=== PATIENT | male | born 2000 | race Caucasian/White ===

== ENCOUNTER 2018-01-23 10:30 | Inpatient (IN) | payer BC, OTHER ==
[2018-01-23 10:48] LABS: #Basophils 0.1 thou/uL (0.0-0.2); #Eosinphils 0.3 thou/uL (0.0-0.7); #Lymphocytes 2.1 thou/uL (1.20-3.40); #Monocytes 0.6 thou/uL (0.11-0.59); #Neutrophils 2.6 thou/uL (1.40-6.50); %Basophils 1.8 % (0.0-1.0); %Eosinophils 5.1 % (0.0-10.0); %Lymphocytes 36.9 % (28.0-48.0); %Monocytes 9.7 % (0.0-4.0); %Neutrophils 46.5 % (31.0-61.0); Hemoglobin 15.4 g/dL (14.0-18.0); Mean Corpuscular HGB CONC 31.9 g/dL (32.0-36.0); Mean Corpuscular Hemoglobin 29.5 pg (25.0-35.0); Mean Corpuscular Volume 92.3 fL (78.0-98.0); Mean Platelet Volume 7.4 fL (7.4-10.4); Platelet Count 213 thou/uL (130-400); RBC Distribution Width 11.6 % (11.5-14.5); Red Blood Cell (RBC) Count 5.23 mill/uL (4.00-5.20); White Blood Cell (WBC) Count 5.7 thou/uL (4.8-10.8)
[2018-01-23] MEDS ORDERED: Fentanyl 100 MCG/2 ML VIAL ONE (11:01)
--- NOTE | 2018-01-23 11:06 | RAD ---
THREE VIEWS RIGHT WRIST: Indication: Right wrist pain. Comparison: None. FINDINGS: There is an instrumented healed scaphoid fracture. There is ossific density seen just posterior to th e triquetrum, suspicious for a dorsal triquetral fracture. No additional acute osseous abnormality is evident. IMPRESSION: 1. Findings suspicious for a minimally displaced dorsal triquetral fracture. 2. Healed instrumented scaphoid fracture. POS: [facility]
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
[2018-01-23 11:17] LABS: ALT (SGPT) 13 U/L (8-55); AST (SGOT) 23 U/L (10-45); Albumin 4.6 g/dL (3.5-5.0); Alkaline Phosphatase 125 U/L (Less than 750); Anion Gap 12 mmol/L (10-20); BUN (Urea Nitrogen) 16 mg/dL (8.4-21.0); Bilirubin, Total 1.9 mg/dL (0.2-1.2); Calc. Creatinine Clearance 0 mL/min (70-130); Calcium 9.5 mg/dL (7.8-10.44); Carbon Dioxide 25 mmol/L (22-29); Chloride 104 mmol/L (98-107); Estimated GFR-MDRD 83; Globulin 2.8 g/dL (2.4-3.5); Glucose 109 mg/dL (70-105); Potassium 3.5 mmol/L (3.5-5.1); Protein, Total 7.4 g/dL (6.0-8.3); Sodium 137 mmol/L (136-145)
[2018-01-23] MEDS ORDERED: Adacel (T-DAP) 0.5 ML VIAL ONE (11:27)
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
[2018-01-23] MEDS ORDERED: Acetaminophen 500 MG TAB PO PRN (12:17)
[2018-01-23] MEDS ORDERED: Ketorolac Tromethamine 30 MG/ML VIAL IVP PRN (12:17)
[2018-01-23] MEDS ORDERED: traMADol HCl 50 MG TAB PO PRN (12:18)
[2018-01-23] MEDS ORDERED: ISOVUE-370 76%-LOCM 1 ML ONE (12:22)
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
[2018-01-23 15:00] VITALS: BMI 21.8
[2018-01-24 05:36] LABS: #Basophils 0.1 thou/uL (0.0-0.2); #Eosinphils 0.2 thou/uL (0.0-0.7); #Lymphocytes 1.7 thou/uL (1.20-3.40); #Monocytes 1.3 thou/uL (0.11-0.59); #Neutrophils 5.4 thou/uL (1.40-6.50); %Basophils 0.6 % (0.0-1.0); %Eosinophils 2.3 % (0.0-10.0); %Lymphocytes 19.5 % (28.0-48.0); %Monocytes 14.7 % (0.0-4.0); %Neutrophils 62.8 % (31.0-61.0); Mean Corpuscular HGB CONC 32.1 g/dL (32.0-36.0); Mean Corpuscular Volume 93.5 fL (78.0-98.0); Mean Platelet Volume 7.9 fL (7.4-10.4); Platelet Count 159 thou/uL (130-400); RBC Distribution Width 11.5 % (11.5-14.5); Red Blood Cell (RBC) Count 4.67 mill/uL (4.00-5.20); White Blood Cell (WBC) Count 8.6 thou/uL (4.8-10.8)
[2018-01-24] MEDS ORDERED: Ibuprofen 600 MG TAB PO SCH (08:00)
[2018-01-24] MEDS ORDERED: Acetaminophen 500 MG TAB PO SCH (08:00)
[2018-01-24 08:17] VITALS: BP 102/61; TEMP 98.8
--- NOTE | 2018-01-24 09:14 | RAD ---
PA AND LATERAL CHEST: History: Follow up of pneumothorax. FINDINGS: Heart size is within normal limits. A small left apical pneumothorax is present. The right lung is cl ear. Minimal blunting to the left costophrenic angle is present. IMPRESSION: Small apical pneumothorax. POS: [facility]
--- NOTE | 2018-01-24 11:56 | PRG ---
DATE OF SERVICE: 01/24/2018 SUBJECTIVE: Mr. Lopez is complaining of some back pain. He has dyspnea only when he walks. PHYSICAL EXAMINATION: VITAL SIGNS: Blood pressure is 102/61, pulse 75, respirations 16. He is afebrile. Multiple voids. CHEST: Clear. HEART: Regular rate and rhythm. ABDOMEN: Soft and nontender. ASSESSMENT: 1. Left apical pneumothorax, stable on followup film. Encouraged incentive spirometer and he will d o that when he goes home as well. He will get follow up chest x-ray when he [facility] next week. 2. Left abdominal and right knee abrasions. I recommended antibiotic ointment after discharge. 3. Questionable splenic laceration, although hemoglobin and hematocrit is stable and this did not lo ok like a significant injury on CT. No further workup, although we will check his hemoglobin when he comes back to the [facility]. 4. Transverse process fractures. Pain control. Recommended ibuprofen after discharge. We will al so get Ultram. DISPOSITION: Discharged home today. Patient to follow up in the [facility]uma Clinic next week.
--- NOTE | 2018-01-24 12:12 | DIS ---
DATE OF ADMISSION: 01/23/2018 DATE OF DISCHARGE: 01/24/2018 ADMIT DIAGNOSES: Small apical pneumothorax T7-T9 transverse process fractures, skin abrasions, quest ionable splenic laceration versus congenital abnormality. DISCHARGE DIAGNOSES: Small apical pneumothorax T7-T9 transverse process fractures, skin abrasions, q uestionable splenic laceration versus congenital abnormality. PROCEDURES: None. CONDITION AT DISCHARGE: Improved. STAFF: Marco A Paz M.D.; Braxton Caro M.D.; [facility]. DISPOSITION: The patient will get followup chest x-ray and hemoglobin when he returns to the trauma office next week. Recommended incentive spirometer after discharge.
== END 2018-01-24 12:54 | disposition home or self-care (01) | DRG 200 ==
LOC: ERS 10:30 → SJJU 14:20
PROVIDERS: ADMIT Specialist; ATTEND Specialist
DX: J93.83 Other pneumothorax (principal); S22.061A Stable burst fracture of T7-T8 vertebra, initial encounter for closed fracture; S22.071A Stable burst fracture of T9-T10 vertebra, initial encounter for closed fracture; Q89.09 Congenital malformations of spleen; S36.039A Unspecified laceration of spleen, initial encounter; S80.212A Abrasion, left knee, initial encounter; S30.811A Abrasion of abdominal wall, initial encounter; V23.4XXA Motorcycle driver injured in collision with car, pick-up truck or van in traffic accident, initial encounter; Y92.414 Local residential or business street as the place of occurrence of the external cause; Y93.I9 Activity, other involving external motion; Y99.8 Other external cause status
CPT/HCPCS: 36415; 70450; 71046; 71260; 72125; 74177; 80053; 85025; 90471; 90715; 96361; 96374; G0390; J1885; J3010

== ENCOUNTER 2018-02-07 14:34 | Outpatient (CLI) | payer BC ==
--- NOTE | 2018-02-07 16:07 | RAD ---
PA AND LATERAL CHEST: Date: 02/07/18 HISTORY: Follow-up of pneumothorax. COMPARISON: 01/24/18. FINDINGS: Heart size and mediastinum are within normal limits. Left-sided pneumothorax has resolved. IMPRESSION: Resolution of left-sided pneumothorax. POS: [facility]
== END 2018-02-07 14:35 | disposition home or self-care (01) ==
LOC: RAD 14:34
PROVIDERS: ATTEND Orthopaedic Surgery
DX: S27.0XXD Traumatic pneumothorax, subsequent encounter (principal)
CPT/HCPCS: 36415; 71046; 85025